=== PATIENT | female | born 2000 | race Caucasian/White ===

== ENCOUNTER 2025-03-12 13:51 | Outpatient (CLI) | payer OTHER, SELFPAY ==
--- OUTSIDE RECORDS SUMMARY | 2025-03-12 13:54 | XMS_ITS | Clinical Summary ---
Author Organization [facility] Address [address] [place] [address] Care Team Providers Care Store Group Manager Name Role Phone Pretty Riley MD Primary Care Provider [phone] Source Comments [facility],non-[facility] health care Affiliates and Associated Physician Practices is amultiple site organization consisting of ambulatory clinics and hospital sitesin [place], [place], [place] and [place]. This disclosure is being madepursuant to the Care Everywhere program and may not contain all information available regarding this patient. Last updated 18.[facility] [employer] Allergies No known active allergies Medications * Be aware that medications may not be up to date on this document. Alwaysverify current medications with the patient. etonogestrel (NEXPLANON) 68 MG implant 68 mg by Subdermal route as directed Active Social History Tobacco Use Types Packs/Day Years Used Date Smoking Tobacco: Never Smokeless Tobacco: Never Comments No Sex and Gender Information Value Date Recorded Sex Assigned at Not on file Legal Sex Female 3:48 PM CDT Gender Identity Not on file Sexual Orientation Not on file Last Filed Vital Signs Vital Sign Reading Time Taken Comments Blood Pressure 110/68 12/06/2018 5:52 PM CDT Pulse 103 12/06/2018 5:52 PM CDT Temperature 36.8 C (98.3 F) 12/06/2018 5:52 PM CDT Respiratory Rate - - Oxygen Saturation 99% 12/06/2018 5:52 PM CDT Inhaled Oxygen Concentration - - Weight 59 kg (130 lb) 12/06/2018 5:52 PM CDT Height 174 cm (5' 8.5) 12/06/2018 5:52 PM CDT Body Mass Index 19.48 12/06/2018 5:52 PM CDT Plan of Treatment Health Maintenance Due Date Last Done Comments HIV SCREENING 2013 HPV VACCINE (1 - 3-dose series) 2013 HEPATITIS C SCREENING 09/24/2016 DTAP/TDAP/TD VACCINES (1 - Tdap) 2017 HEPATITIS B VACCINE (1 of 3 - 19+ 3-dose series) 2017 COVID-19 VACCINE (1 - 2023-2 5 season) 2024 DEPRESSION SCREENING 08/28/2024 INFLUENZA VACCINE (#1) 2025 ZOSTER VACCINE (1 of 2) 2048 HIB VACCINE Aged Out No longer eligi ble based on patient's age to complete this topic MENINGOCOCCAL (Group B) VACC INE SHARED DECISION-MAKING Aged Out No longer eligibl e based on patient's age to complete this topic MENINGOCOCCAL GROUPS A/C/Y/W VACCINE Aged Out No longer eligible b ased on patient's age to complete this topic PNEUMOCOCCAL VACCINE Aged Out No long er eligible based on patient's age to complete this topic Insurance Care Teams Store Group Manager Relationship Specialty Start Date End Date Pretty Riley MD [address] [place] [address] PCP - General Family Medicine 08/30/17
[2025-03-12 15:56] LABS: Iron 91 ug/dL (37-170)
[2025-03-12 16:05] LABS: Percent Iron Saturation 20 % (20-50)
[2025-03-12 16:28] LABS: Thyroid Stimulating Hormone Reflex 1.640 uIU/mL (0.465-4.68)
[2025-03-12 16:32] LABS: Ferritin 7.66 ng/mL (6.24-137)
[2025-03-13 07:08] LABS: FSH 3.4 mIU/mL (.); LH 3.6 mIU/mL (.)
[2025-03-16 23:07] LABS: Estradiol, Sensitive 103.0 pg/mL (.)
[2025-03-18 21:07] LABS: Free Testosterone (Direct) 0.4 pg/mL (0.0-4.2)
== END 2025-03-12 13:52 | disposition home or self-care (01) ==
LOC: ANHLAB 13:52
PROVIDERS: PCP Family Medicine; Visit Provider Obstetrics & Gynecology
DX: N93.9 Abnormal uterine and vaginal bleeding, unspecified (principal); R23.2 Flushing
CPT/HCPCS: 36415; 82166; 82670; 82728; 83001; 83002; 83540; 83550; 84270; 84402; 84443

== ENCOUNTER 2025-06-04 15:20 | Outpatient (CLI) | payer OTHER, SELFPAY ==
[2025-06-04 15:38] LABS: Hematocrit 41.2 % (37.0-47.0); Hemoglobin 12.8 g/dL (12.0-15.0); Immature Granulocyte Percent A 0.4 % (0-0.5); Lymphocytes Absolute Auto 1.69 K/mm3 (0.9-3.2); Mean Corpuscular HGB Conc 31.1 g/dl (32-36); Mean Corpuscular Hemoglobin 26.6 pg (26-34); Mean Corpuscular Volume 85.5 fl (80-100); Nucleated Red Blood Cells Absolute Auto 0.000 K/mm3 (0.0-0.012); Nucleated Red Blood Cells Perc 0.0 % (0.0-0.2); Platelet Count Result 283 k/mm3 (150-375); Red Blood Count 4.82 M/mm3 (4.2-5.4); White Blood Count 7.2 K/mm3 (4.5-10.0)
[2025-06-04 15:50] LABS: Alanine Aminotransferase 40 U/L (6-35); Albumin Level 4.7 g/dL (3.5-5.1); Alkaline Phosphatase 90 U/L (38-126); Anion Gap 8 mmol/L (4-12); Aspartate Amino Transferase 42 U/L (14-36); Bilirubin,Total 0.7 mg/dL (0.2-1.3); Blood Urea Nitrogen 8 mg/dL (7-17); Calcium 9.5 mg/dL (8.4-10.2); Carbon Dioxide 26 mmol/L (22-30); Chloride 104 mmol/L (98-107); Estimated Glomerular Filt Rate > 60; Glucose 90 mg/dL (65-110); Potassium 4.1 mmol/L (3.4-5.0); Sodium 138 mmol/L (137-145); Total Protein 8.5 g/dL (6.3-8.2)
[2025-06-04 16:25] LABS: Thyroid Stimulating Hormone 2.140 uIU/mL (0.465-4.680)
[2025-06-04 16:48] LABS: Free T3 4.13 pg/mL (2.32-6.09); Free T4 Free Thyroxine 0.78 ng/dL (0.78-2.19)
== END 2025-06-04 15:21 | disposition home or self-care (01) ==
LOC: ANHLAB 15:22
PROVIDERS: PCP Nurse Practitioner Family; Visit Provider Nurse Practitioner Family
DX: R61 Generalized hyperhidrosis (principal); R55 Syncope and collapse
CPT/HCPCS: 36415; 80053; 84439; 84443; 84481; 85025; 86376